=== PATIENT | female | born 1945 | race Caucasian/White ===

== ENCOUNTER 2019-01-20 20:27 | Emergency (ER) | payer OTHER ==
[2019-01-20] MEDS ORDERED: HYDROCODONE/APAP 5/325 MG TAB ONE (21:43)
--- NOTE | 2019-01-20 22:37 | EDPHYS ---
Physician Documentation [facility] Name: Sadia Stephenson Age: 73 yrs Sex: Female : 1945 Arrival Date: 01/20/2019 Time: 20:31 Bed 18 Private MD: Jovany Lerner ED Physician William Peng HPI: 01/20 21:58 This 73 yrs old Female presents to ER via Wheelchair with complaints of Fall gs Injury. 21:58 Details of fall: The patient fell from an upright position, while walking. Onset: The gs symptoms/episode began/occurred acutely, 3 day(s) ago. Associated injuries: The patient sustained injury to the chest, abrasion, contusion, pain with movement. Severity of symptoms: At their worst the symptoms were moderate, in the emergency department the symptoms have resolved. The patient has experienced similar episodes in the past, a few times. The patient has been recently seen at the [facility] Emergency Department, for similar complaints. Historical: - Allergies: 20:44 No Known Allergies; rr5 - Home Meds: 20:44 losartan oral oral [Active]; tramadol 50 mg Oral tab [Active]; Baclofen Oral [Active]; rr5 alprazolam 1 mg Oral tab [Active]; - PMHx: 20:44 Hypertension; Anxiety; Arthritis; rr5 - PSHx: 20:44 Cholecystectomy; rr5 - Immunization history:: Adult Immunizations up to date. - Social history:: Smoking status: Patient/guardian denies using tobacco, Patient/guardian denies using alcohol, street drugs. - Immunization history: Last tetanus immunization: unknown. - Ebola Screening: : Patient negative for fever greater than or equal to 101.5 degrees Fahrenheit, and additional compatible Ebola Virus Disease symptoms Patient denies exposure to infectious person Patient denies travel to an Ebola-affected area in the 21 days before illness onset. ROS: 21:58 All other systems are negative. gs Exam: 21:58 Head/Face: Normocephalic, atraumatic. Eyes: Pupils equal round and reactive to light, gs extra-ocular motions intact. Lids and lashes normal. Conjunctiva and sclera are non-icteric and not injected. Cornea within normal limits. Periorbital areas with no swelling, redness, or edema. ENT: Nares patent. No nasal discharge, no septal abnormalities noted. Tympanic membranes are normal and external auditory canals are clear. Oropharynx with no redness, swelling, or masses, exudates, or evidence of obstruction, uvula midline. Mucous membranes moist. Neck: Trachea midline, no thyromegaly or masses palpated, and no cervical lymphadenopathy. Supple, full range of motion without nuchal rigidity, or vertebral point tenderness. No Meningismus. Cardiovascular: Regular rate and rhythm with a normal S1 and S2. No gallops, murmurs, or rubs. Normal PMI, no JVD. No pulse deficits. Respiratory: Lungs have equal breath sounds bilaterally, clear to auscultation and percussion. No rales, rhonchi or wheezes noted. No increased work of breathing, no retractions or nasal flaring. Abdomen/GI: Soft, non-tender, with normal bowel sounds. No distension or tympany. No guarding or rebound. No evidence of tenderness throughout. Back: No spinal tenderness. No costovertebral tenderness. Full range of motion. Skin: Warm, dry with normal turgor. Normal color with no rashes, no lesions, and no evidence of cellulitis. Neuro: Awake and alert, GCS 15, oriented to person, place, time, and situation. Cranial nerves II-XII grossly intact. Motor strength 5/5 in all extremities. Sensory grossly intact. Cerebellar exam normal. Normal gait. 21:58 Constitutional: The patient appears alert, awake. 21:58 Musculoskeletal/extremity: ROM: limited active range of motion due to pain, limited passive range of motion due to pain, left wrist, Pulses: are normal with no appreciated deficits, Sensation intact. Vital Signs: 20:44 BP 162 / 129; Pulse 94; Resp 17; Temp 98.5; Pulse Ox 100% ; Weight 49.9 kg; Height 5 rr5 ft. 4 in. (162.56 cm); Pain 7/10; 22:00 BP 165 / 110; Pulse 89; Resp 16; Pulse Ox 99% on R/A; rr5 23:10 BP 159 / 92; Pulse 84; Resp 17; Temp 97.9; Pulse Ox 99% on R/A; rr5 20:44 Body Mass Index 18.88 (49.90 kg, 162.56 cm) rr5 Citlaly Coma Score: 20:44 Eye Response: spontaneous(4). Verbal Response: oriented(5). Motor Response: obeys rr5 commands(6). Total: 15. Trauma Score (Adult): 20:44 Eye Response: spontaneous(1); Verbal Response: oriented(1); Motor Response: obeys rr5 commands(2); Systolic BP: > 89 mm Hg(4); Respiratory Rate: 10 to 29 per min(4); Pathfork Score: 15; Trauma Score: 12 MDM: 21:14 Patient medically screened. gs 22:35 Differential diagnosis: contusion, fracture, sprain. Data reviewed: vital signs, nurses gs notes, radiologic studies. Counseling: I had a detailed discussion with the patient and/or guardian regarding: the historical points, exam findings, and any diagnostic results supporting the discharge/admit diagnosis, radiology results, the need for outpatient follow up. Response to treatment: the patient's symptoms have markedly improved after treatment, and as a result, I will discharge patient. 01/20 21:14 Order name: CT Chest Wo Con Administered Medications: 21:45 Drug: Nora 5 mg-325 mg 1 tabs Route: PO; rr5 23:10 Follow up: Response: No adverse reaction rr5 Disposition: 01/20/19 22:36 Discharged to Home. Impression: Multiple fractures of ribs, left side. - Condition is Stable. - Discharge Instructions: Rib Fracture. - Prescriptions for Tylenol- Codeine #4 300-60 mg Oral Tablet - take 1 tablet by ORAL route every 6 hours As needed; 12 tablet. - Medication Reconciliation Form, Thank You Letter, Antibiotic Education, Prescription Opioid Use form. - Follow up: Private Physician; When: 2 - 3 days; Reason: Re-evaluation by your physician. Signatures: Dispatcher [employer] EDMI William Peng MD MD Nicholas Guerra RN RN rr5 Corrections: (The following items were deleted from the chart) 23:20 22:36 01/20/2019 22:36 Discharged to Home. Impression: Multiple fractures of ribs, left rr5 side. Condition is Stable. Forms are Medication Reconciliation Form, Thank You Letter, Antibiotic Education, Prescription Opioid Use. Follow up: Private Physician; When: 2 - 3 days; Reason: Re-evaluation by your physician.
--- NOTE | 2019-01-20 22:37 | ER ---
Nurse's Notes [facility] Name: Sadia Stephenson Age: 73 yrs Sex: Female : 1945 Arrival Date: 01/20/2019 Time: 20:31 Bed 18 Private MD: Jovany Lerner Diagnosis: Multiple fractures of ribs, left side Presentation: 01/20 20:44 Presenting complaint: Patient states: i fell down last Friday hit my left chest area rr5 radiating to my back. having . pain score of 7/10. sharp pain felt when i breath in. last January 07 i fell down too broke my left wrist area and my right rib cage. i went to dr. Horner last January 13 for that. Transition of care: patient was not received from another setting of care. Onset of symptoms was January 17, 2019. Risk Assessment: Do you want to hurt yourself or someone else? Patient reports no desire to harm self or others. Initial Sepsis Screen: Does the patient meet any 2 criteria? No. Patient's initial sepsis screen is negative. Does the patient have a suspected source of infection? No. Patient's initial sepsis screen is negative. Care prior to arrival: on left wrist brace. Mechanism of Injury: Fall. 20:44 Method Of Arrival: Wheelchair rr5 20:44 Acuity: SLIM 3 rr5 20:44 Trauma event details: Injury occurred in the [facility], Injury occurred: at rr5 home. Injury occurred: January 17, 2019. 20:44 Mechanism of Injury: Fall while going to bathroom. rr5 Trauma Activation: Alert Physician: ED Physician; Name: dr. peng; Notified At: 20:44; Arrived At: 20:50 Physician: General Surgeon; Name: ; Notified At: 20:44; Arrived At: Physician: Radiology; Name: luca walsh; Notified At: 20:44; Arrived At: 20:47 Physician: Respiratory; Name: ; Notified At: 20:44; Arrived At: Physician: Lab; Name: ; Notified At: 20:44; Arrived At: Historical: - Allergies: 20:44 No Known Allergies; rr5 - Home Meds: 20:44 losartan oral oral [Active]; tramadol 50 mg Oral tab [Active]; Baclofen Oral [Active]; rr5 alprazolam 1 mg Oral tab [Active]; - PMHx: 20:44 Hypertension; Anxiety; Arthritis; rr5 - PSHx: 20:44 Cholecystectomy; rr5 - Immunization history:: Adult Immunizations up to date. - Social history:: Smoking status: Patient/guardian denies using tobacco, Patient/guardian denies using alcohol, street drugs. - Immunization history: Last tetanus immunization: unknown. - Ebola Screening: : Patient negative for fever greater than or equal to 101.5 degrees Fahrenheit, and additional compatible Ebola Virus Disease symptoms Patient denies exposure to infectious person Patient denies travel to an Ebola-affected area in the 21 days before illness onset. Screenin:44 Abuse screen: Denies threats or abuse. Denies injuries from another. Tuberculosis rr5 screening: No symptoms or risk factors identified. 20:45 Nutritional screening: No deficits noted. Fall Risk Fall in past 12 months (25 points). rr5 Total Petit Fall Scale indicates Low Risk Score (25-44 pts). Fall prevention measures have been instituted. Side Rails Up X 2 Placed close to Nursing Station Frequent Obs/Assesments occuring Family Present and informed to notify staff if they need to leave bedside As available Patient and Family Educated on Fall Prevention Program and strategies. Primary Survey: 20:44 NO uncontrolled hemorrhage observed. A: The patient is alert. Airway: patent. rr5 Breathing/Chest: Respiratory pattern: regular, Respiratory effort: spontaneous, unlabored, Breath sounds: clear, bilaterally. Chest inspection: symmetrical rise and fall of the chest. Circulation: Heart tones present. Pulses: palpable right radial artery. 20:44 Disability Alert. Exposure/Environment: There is no evidence of uncontrolled external rr5 bleeding. Obvious injury(ies) are noted at this time: left rib cage present. for the previous injury left wrist, right rib cage. 21:44 Reassessment Airway Airway Patent Breathing/Chest Respiratory pattern Regular rr5 Respiratory effort Spontaneous Unlabored Breath sounds Clear Chest inspection Symmetrical Circulation Heart tones Present Pulses Palpable Color [place] Temperature Warm Disability Alert. Secondary Survey: 20:44 HEENT: No deficits noted. Head. Gastrointestinal: No deficits noted. rr5 20:44 : No signs and/or symptoms were reported regarding the genitourinary system. rr5 Musculoskeletal: Circulation, motion, and sensation intact. Capillary refill < 3 seconds, Range of motion: intact in all extremities, Reports pain in left rib cage. Injury Description: contusion, fell down and hit her left rib cage area. Assessment: 20:44 General: Appears in no apparent distress. comfortable, Behavior is calm, cooperative, rr5 appropriate for age. 20:44 Pain: Complains of pain in left rib cage Pain radiates to back Pain currently is 7 out rr5 of 10 on a pain scale. Quality of pain is described as sharp, Pain began suddenly, Is intermittent. Neuro: Level of Consciousness is awake, alert, obeys commands, Oriented to person, place, time, situation, Appropriate for age. Cardiovascular: Capillary refill < 3 seconds Patient's skin is warm and dry. Respiratory: Reports pain with respiration since 3 days ago Airway is patent Respiratory effort is even, unlabored, Respiratory pattern is regular, symmetrical. GI: No signs and/or symptoms were reported involving the gastrointestinal system. : No signs and/or symptoms were reported regarding the genitourinary system. EENT: No signs and/or symptoms were reported regarding the EENT system. Derm: Skin is intact, Skin temperature is warm. Musculoskeletal: Circulation, motion, and sensation intact. Capillary refill < 3 seconds, on left wrist brace attached sustained from previous fall. Reports pain in left rib cage since Friday 3 days ago. Pain is 7 out of 10 on a pain scale. 21:30 Reassessment: Patient appears in no apparent distress at this time. Patient is alert, rr5 oriented x 3, equal unlabored respirations, skin warm/dry/pink. 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 21:45 Reassessment: Patient appears in no apparent distress at this time. patient complaint rr5 of pain at left rib. ED provider ordered and carried out. 22:20 Reassessment: awaiting for CT result. rr5 22:20 Reassessment: Patient appears in no apparent distress at this time. Patient is alert, rr5 oriented x 3, equal unlabored respirations, skin warm/dry/pink. 23:10 Reassessment: Patient appears in no apparent distress at this time. discharge rr5 instruction given and explained without complaints made assisted by family member. refused for the pain medication prescription. Patient states feeling better. Patient states symptoms have improved. Vital Signs: 20:44 BP 162 / 129; Pulse 94; Resp 17; Temp 98.5; Pulse Ox 100% ; Weight 49.9 kg; Height 5 rr5 ft. 4 in. (162.56 cm); Pain 7/10; 22:00 BP 165 / 110; Pulse 89; Resp 16; Pulse Ox 99% on R/A; rr5 23:10 BP 159 / 92; Pulse 84; Resp 17; Temp 97.9; Pulse Ox 99% on R/A; rr5 20:44 Body Mass Index 18.88 (49.90 kg, 162.56 cm) rr5 Citlaly Coma Score: 20:44 Eye Response: spontaneous(4). Verbal Response: oriented(5). Motor Response: obeys rr5 commands(6). Total: 15. Trauma Score (Adult): 20:44 Eye Response: spontaneous(1); Verbal Response: oriented(1); Motor Response: obeys rr5 commands(2); Systolic BP: > 89 mm Hg(4); Respiratory Rate: 10 to 29 per min(4); Hardy Score: 15; Trauma Score: 12 ED Course: 20:31 Patient arrived in ED. es 20:31 Jovany Lerner MD is Private Physician. es 20:43 Nicholas Guerra RN is Primary Nurse. rr5 20:44 Arm band placed on. rr5 20:45 William Peng MD is Attending Physician. gs 20:45 Patient has correct armband on for positive identification. Bed in low position. Call rr5 light in reach. Side rails up X2. Pulse ox on. NIBP on. 20:45 Patient maintains SpO2 saturation greater than 95% on room air. rr5 20:50 Thermoregulation: warm blanket given to patient. rr5 20:51 Triage completed. rr5 21:39 CT Chest Wo Con In Process Unspecified. EDMS 23:15 No provider procedures requiring assistance completed. Patient did not have IV access rr5 during this emergency room visit. Administered Medications: 21:45 Drug: [place] 5 mg-325 mg 1 tabs Route: PO; rr5 23:10 Follow up: Response: No adverse reaction rr5 Intake: 21:45 PO: 200ml; Total: 200ml. rr5 Outcome: 22:36 Discharge ordered by . 23:15 Discharged to home ambulatory, with family. rr5 23:15 Condition: stable 23:15 Discharge instructions given to patient, Instructed on discharge instructions, follow up and referral plans. Demonstrated understanding of instructions, follow-up care. 23:15 Patient's length of stay was not longer than 2 hours. rr5 23:20 Patient left the ED. rr5 Signatures: Dispatcher [employer] Alona Nunez Gregory, MD MD gs Roque, Raymond RN RN rr5
--- NOTE | 2019-01-22 09:38 | RAD REPORT ---
EXAM DESCRIPTION: CT - Thorax Susie Chandler - 01/21/2019 2:29 am CLINICAL HISTORY: The patient is 73 years old and is Female; PAIN TECHNIQUE: Axial computed tomography images of the chest without intravenous contrast. Sagittal an d coronal reformatted images were created and reviewed. This CT exam was performed using one or mor e of the following dose reduction techniques: automated exposure control, adjustment of the mA and/ or kV according to patient size, and/or use of iterative reconstruction technique. COMPARISON: No relevant prior studies available. FINDINGS: LUNGS: Minimal atelectasis/scarring within the medial aspect of the right middle lobe is present. Calcified granuloma within the left upper lobe is present. The tracheobronchial tree is wid graham patent. PLEURAL SPACE: Unremarkable. No pneumothorax. No significant effusion. HEART: No cardiomegaly. No pericardial effusion. BONES/JOINTS: Multilevel degenerative change of the spine is present. Fractures of the left ante rior third and fourth ribs are present. No other fracture is visualized of the axial and appendicular skeleton. SOFT TISSUES: The soft tissues are normal. VASCULATURE: Unremarkable. No thoracic aortic aneurysm. LYMPH NODES: Unremarkable. No enlarged lymph nodes. LIVER: Several low attenuating lesions are present within the liver consistent with cysts, the l argest of which measures approximately 3.0 cm. No follow-up imaging is recommended. There is a partia lly visualized ill-defined low attenuating lesion within the right hepatic lobe measuring 3.5 x 1.5 c m. GALLBLADDER AND BILE DUCTS: Surgical clips are present in the right upper quadrant, consistent w ith previous cholecystectomy. IMPRESSION: 1. Fractured left anterior third and fourth ribs. 2. Minimal atelectasis/scarring within the right middle lobe. 3. Multiple hepatic cysts. However, there is a partially visualized ill-defined low attenuating les ion within the inferior right hepatic lobe which is incompletely characterized on this exam. Nonemerg ent hepatic protocol CT or MRI is recommended for further evaluation. Electronically signed by: Samantha Terry MD 01/20/2019 9:55 PM CDT Due to temporary technical issues with the PACS/Fluency reporting system, reports are being signed by the in house radiologist as a courtesy to ensure prompt reporting. The interpreting radiologist is f ully responsible for the content of the report.
== END 2019-01-20 23:20 | disposition home or self-care (01) ==
LOC: ER 20:27
DX: S22.42XA Multiple fractures of ribs, left side, initial encounter for closed fracture (principal); W19.XXXA Unspecified fall, initial encounter; Y93.9 Activity, unspecified; Y92.9 Unspecified place or not applicable; I10 Essential (primary) hypertension; F41.9 Anxiety disorder, unspecified
CPT/HCPCS: 71250; 99284

== ENCOUNTER 2020-09-23 15:01 | Emergency (ER) | payer OTHER ==
--- OUTSIDE RECORDS SUMMARY | 2020-09-23 15:03 | XMS REPORT | Continuity of Care Document ---
:1945 Author Organization [facility] t Address [address] [place] [address] Care Team Providers Name Role Phone Warren LINARES L Attending Clinician Problems This patient has no known problems. Allergies, Adverse Reactions, Alerts This patient has no known allergies or adverse reactions. Medications Ordered Filled Start Stop Current Ordering Indication Dosage Frequency Signature Comments Components Source Medication Medication Date Date Medication? Clinician (SIG) Name Name Diclofenac Diclofenac Yes Na Hightower [address] [facility] Sodium Sodium 3-03 with food [facility] baclofen baclofen Yes Na Hightower [address] [facility] Klonopin Klonopin Yes Na Hightower [address] [facility] Diclofenac Diclofenac Yes Na Hightower as [facility] Sodium Sodium directed [facility] Losartan Losartan Yes Na Hightower [address] [facility] Potassium Potassium [facility] Tramadol Tramadol Yes Na Hightower [address] [facility] HCl HCl as needed [facility] Procedures This patient has no known procedures. Encounters Start End Encounter Admission Attending Care Care Encounter Source Date/Time Date/Time Type Type Clinicians Facility Department ID 2020-09-12 2020-09-[address] [facility] [id number] [facility] 2020-08-15 2020-08-15 [facility] [id number] 2020-08-15 2020-08-15 [facility] [id number] [facility] 2020-08-07 2020-08-07 [facility] [id number] [facility] 2020-05-31 2020-05-31 [facility] [id number] [facility] 2020-03-31 2020-03-31 [facility] [id number] [facility] 08:40:00 08:40:00 [facility] 2019-02-12 2019-02-12 [facility] [id number] 08:09:19 23:59:00 Encounter [facility] [id number] Surgical [id number] Specialti [id number] es 809 Georgi 2019-02-12 2019-02-12 Office [facility] [id number] 07:49:57 08:22:09 Visit [facility] [id number] Surgical [id number] Specialti [id number] es 198 Georgi Results This patient has no known results.
--- NOTE | 2020-09-23 16:13 | RAD REPORT ---
EXAM DESCRIPTION: CT - C Spine Wo Con - 09/23/2020 4:02 pm CLINICAL HISTORY: Pain, radiculopathy COMPARISON: MR cervical spine March 2020 TECHNIQUE: Axial 2 mm thick images of the cervical spine were obtained with sagittal and coronal rec onstruction images generated and reviewed. All CT scans are performed using dose optimization technique as appropriate and may include automated exposure control or mA/KV adjustment according to patient size. FINDINGS: Cervical bodies are normal in height. No acute compression fracture or pathologic bone pro cess. There is reversal of the usual cervical lordosis with the apex at C5. Very slight retrolisthesi s of C5 on C6 noted. Significant C5-6 and C6-7 disc space narrowing present. More moderate C4-5 disc space narrowing. These findings are all similar to the comparison study. No paraspinal mass or hematoma. Central canal detail is inherently limited on CT imaging. Midline disc bulge C3-4 with the central canal 9-10 mm. This is similar to comparison. C4-5 midline disc bulge and endplate spurring extending into the left exit foramen. There is left for aminal stenosis. No central spinal stenosis. Spondylosis changes contact the left anterior cord. Prominent disc bulge and endplate spurring changes are present C5-6. Central spinal stenosis to appro ximately 8 mm noted. Bilateral bony foraminal encroachment present. C6-7 disc bulge and endplate spurring changes though the central canal at 9 mm. Right foraminal encro achment is evident. IMPRESSION: Multilevel cervical spondylosis changes are present as detailed. No acute vertebral body or disc finding. The above detailed findings are stable from the March 2020 MRI study.
--- NOTE | 2020-09-23 16:14 | RAD REPORT ---
EXAM DESCRIPTION: RAD - Chest Single View - 09/23/2020 4:09 pm CLINICAL HISTORY: CHEST PAIN COMPARISON: Portable February 2017 TECHNIQUE: AP portable chest image was obtained 09/23/2020 4:09 pm . FINDINGS: No focal mass or consolidation. Chronic interstitial pattern accentuated by shallow inspir ation. Minimal edema or infiltrate could be masked. Granuloma lateral mid lung field on the left has not changed. Heart and vasculature are normal. No measurable pleural effusion and no pneumothorax. No acute bony abnormality seen. No acute aortic findings suspected. IMPRESSION: Chronic interstitial lung disease accentuated by shallow inspiration. This could mask ea rly edema or infiltrate.
[2020-09-23] MEDS ORDERED: ONDANSETRON 4 MG/2 ML VIAL ONE (16:22)
[2020-09-23] MEDS ORDERED: MORPHINE 2 MG/ML SYR ONE (16:22)
[2020-09-23] MEDS ORDERED: DIAZEPAM 5 MG TABLET ONE (16:22)
[2020-09-23] MEDS ORDERED: NA CHLORIDE 0.9% 50 ML ONE (16:23)
[2020-09-23] MEDS ORDERED: KETOROLAC 30 MG/ML INJ ONE (16:23)
[2020-09-23] MEDS ORDERED: dexAMETHasone 4 MG/ML VIAL ONE (16:23)
[2020-09-23 16:53] LABS: Absolute Lymphocytes (CBC) 2.3 K/uL (0.7-4.9); Basophils % 1.2 % (0-1.3); Hematocrit 37.7 % (36.0-45.0); Lymphocytes % 31.2 % (15.3-44.8); MPV 8.2 fL (7.6-11.3); RBC Red Blood Cell Count 4.41 M/uL (3.86-4.86)
[2020-09-23 17:08] LABS: Albumin 3.7 g/dL (3.4-5.0); Bilirubin Total 0.4 mg/dL (0.2-1.0); Potassium 3.7 mmol/L (3.5-5.1); Protein, Total 6.6 g/dL (6.4-8.2)
--- NOTE | 2020-09-23 17:12 | EDPHYS ---
Physician Documentation [facility] Name: Sadia Stephenson Age: 75 yrs Sex: Female : 1945 Arrival Date: 09/23/2020 Time: 15:03 Bed 14 Private MD: Lashay Hightower ED Physician Janes Carson HPI: 09/23 16:11 This 75 yrs old Female presents to ER via Ambulatory with complaints of miguel Headache, Neck Pain, >24Hrs Old. Historical: - Allergies: 15:13 No Known Allergies; iw - PMHx: 15:13 Anxiety; Arthritis; Hypertension; iw - PSHx: 15:13 Cholecystectomy; iw - Immunization history:: Flu vaccine is up to date. - Social history:: Smoking status: Patient denies any tobacco usage or history of. ROS: 16:14 Constitutional: Negative for fever, chills, and weight loss, Eyes: Negative for injury, miguel pain, redness, and discharge, ENT: Negative for injury, pain, and discharge, Cardiovascular: Negative for chest pain, palpitations, and edema, Respiratory: Negative for shortness of breath, cough, wheezing, and pleuritic chest pain, Abdomen/GI: Negative for abdominal pain, nausea, vomiting, diarrhea, and constipation, Back: Negative for injury and pain, : Negative for injury, bleeding, discharge, and swelling, MS/Extremity: Negative for injury and deformity, Skin: Negative for injury, rash, and discoloration, Neuro: Negative for headache, weakness, numbness, tingling, and seizure, Psych: Negative for depression, anxiety, suicide ideation, homicidal ideation, and hallucinations, Allergy/Immunology: Negative for hives, rash, and allergies, Endocrine: Negative for neck swelling, polydipsia, polyuria, polyphagia, and marked weight changes, Hematologic/Lymphatic: Negative for swollen nodes, abnormal bleeding, and unusual bruising. 16:14 Neck: Positive for pain with movement, pain at rest. Exam: 16:14 Constitutional: This is a well developed, well nourished patient who is awake, alert, miguel and in no acute distress. Head/Face: Normocephalic, atraumatic. Eyes: Pupils equal round and reactive to light, extra-ocular motions intact. Lids and lashes normal. Conjunctiva and sclera are non-icteric and not injected. Cornea within normal limits. Periorbital areas with no swelling, redness, or edema. ENT: Nares patent. No nasal discharge, no septal abnormalities noted. Tympanic membranes are normal and external auditory canals are clear. Oropharynx with no redness, swelling, or masses, exudates, or evidence of obstruction, uvula midline. Mucous membranes moist. Chest/axilla: Normal chest wall appearance and motion. Nontender with no deformity. No lesions are appreciated. Cardiovascular: Regular rate and rhythm with a normal S1 and S2. No gallops, murmurs, or rubs. Normal PMI, no JVD. No pulse deficits. Respiratory: Lungs have equal breath sounds bilaterally, clear to auscultation and percussion. No rales, rhonchi or wheezes noted. No increased work of breathing, no retractions or nasal flaring. Abdomen/GI: Soft, non-tender, with normal bowel sounds. No distension or tympany. No guarding or rebound. No evidence of tenderness throughout. Back: No spinal tenderness. No costovertebral tenderness. Full range of motion. Female : Normal external genitalia. Skin: Warm, dry with normal turgor. Normal color with no rashes, no lesions, and no evidence of cellulitis. MS/ Extremity: Pulses equal, no cyanosis. Neurovascular intact. Full, normal range of motion. Neuro: Awake and alert, GCS 15, oriented to person, place, time, and situation. Cranial nerves II-XII grossly intact. Motor strength 5/5 in all extremities. Sensory grossly intact. Cerebellar exam normal. Normal gait. Psych: Awake, alert, with orientation to person, place and time. Behavior, mood, and affect are within normal limits. 16:14 Neck: External neck: is normal, no acute changes, C-spine: no acute changes, Thyroid: appears normal, no acute changes, Trachea: is midline with no obvious abnormalities, no acute changes, ROM/movement: pain, that is mild, with any movement, Lymph nodes: no appreciated lymphadenopathy. Vital Signs: 15:11 BP 150 / 92; Pulse 75; Resp 16; Temp 98.7; Pulse Ox 100% on R/A; Weight 49.9 kg; Height iw 5 ft. 4 in. (162.56 cm); Pain 10/10; 16:59 BP 137 / 73; Pulse 58; Resp 16; Pulse Ox 99% on R/A; zb 15:11 Body Mass Index 18.88 (49.90 kg, 162.56 cm) iw MDM: 15:24 Patient medically screened. miguel 16:16 Differential diagnosis: Cervical Raiculopathy Cervical Spondylosis cervical strain, miguel Degenerative Disc Disease Osteoarthritis Spinal Cord Compression Spondylolisthesis Spondylosis. Data reviewed: vital signs, nurses notes, lab test result(s), EKG, radiologic studies, CT scan, plain films. 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 Test interpretation: by ED physician or midlevel provider: ECG, plain radiologic studies. Counseling: I had a detailed discussion with the patient and/or guardian regarding: the historical points, exam findings, and any diagnostic results supporting the discharge/admit diagnosis, lab results, radiology results, the need for outpatient follow up, for definitive care, a family practitioner, a neurosurgeon. 09/23 15:39 Order name: CBC with Diff; Complete Time: 17:06 [facility] 09/23 15:39 Order name: Comprehensive Metabolic Panel; Complete Time: 17:11 [facility] 09/23 15:39 Order name: CT C Spine; Complete Time: 16:23 [facility] 09/23 15:39 Order name: Chest Single View XRAY; Complete Time: 16:23 [facility] 09/23 16:24 Order name: Troponin (emerg Dept Use Only) [facility] 09/23 15:39 Order name: EKG; Complete Time: 15:40 [facility] 09/23 15:39 Order name: EKG - Nurse/Tech; Complete Time: 16:42 [facility] Administered Medications: 16:42 Drug: Decadron - Dexamethasone 8 mg Route: IVP; Site: right antecubital; zb 17:30 Follow up: Response: No adverse reaction; Pain is decreased zb 16:42 Drug: TORadol 30 mg Route: IVP; Site: right antecubital; zb 17:30 Follow up: Response: No adverse reaction; Pain is decreased zb 16:42 Drug: Valium 5 mg Route: PO; zb 17:30 Follow up: Response: No adverse reaction; Pain is decreased zb 16:42 Drug: Zofran (Ondansetron) 4 mg Route: IVP; Site: right antecubital; zb 17:30 Follow up: Response: No adverse reaction; Marked relief of symptoms zb 16:43 Drug: morphine 2 mg {Note: RASS 0.} Route: IVP; Site: right antecubital; zb 17:30 Follow up: Response: No adverse reaction; RASS: Alert and Calm (0) zb Disposition: 09/23/20 17:11 Discharged to Home. Impression: Radiculopathy, cervical region, Strain of muscle, fascia and tendon at neck level. - Condition is Stable. - Discharge Instructions: Cervical Radiculopathy, Cervical Sprain, [id number], Cervical Radiculopathy, [id number], Radicular Pain. - Prescriptions for Tylenol- Codeine #3 300-30 mg Oral Tablet - take 2 tablets by ORAL route every 4-6 hours As needed; 24 tablet. Dexamethasone 0.5 mg Oral Tablet - take 1 tablet by ORAL route 3 times per day; 15 tablet. Motrin IB 200 mg Oral Tablet - take 2 tablet by ORAL route every 6 hours As needed as needed with food; 30 tablet. Cyclobenzaprine 5 mg Oral Tablet - take 1 tablet by ORAL route 3 times per day As needed; 15 tablet. - Medication Reconciliation Form, Thank You Letter, Antibiotic Education, Prescription Opioid Use form. - Follow up: Lashay Hightower; When: 2 - 3 days; Reason: Recheck today's complaints, Continuance of care, Re-evaluation by your physician. Follow up: Yury Gonzalez; When: 2 - 3 days; Reason: Recheck today's complaints, Re-evaluation by your physician. - Problem is new. - Symptoms have improved. Signatures: Dispatcher [employer] Janes Mir MD MD cha Williams, Irene, RN RN iw Brown, Zipporah, RN RN zradha Corrections: (The following items were deleted from the chart) 16:13 16:10 This 75 yrs old Female presents to ER via Ambulatory with complaints of miguel Headache, Neck Pain, >24Hrs Old. miguel 17:33 17:11 09/23/2020 17:11 Discharged to Home. Impression: Radiculopathy, cervical region; zb Strain of muscle, fascia and tendon at neck level. Condition is Stable. Discharge Instructions: Cervical Radiculopathy, Cervical Sprain, [id number], Cervical Radiculopathy, [id number], Radicular Pain. Prescriptions for Tylenol-Codeine #3 300-30 mg Oral Tablet - take 2 tablets by ORAL route every 4-6 hours As needed; 24 tablet, Dexamethasone 0.5 mg Oral Tablet - take 1 tablet by ORAL route 3 times per day; 15 tablet, Motrin IB 200 mg Oral Tablet - take 2 tablet by ORAL route every 6 hours As needed as needed with food; 30 tablet, Cyclobenzaprine 5 mg Oral Tablet - take 1 tablet by ORAL route 3 times per day As needed; 15 tablet. and Forms are Medication Reconciliation Form, Thank You Letter, Antibiotic Education, Prescription Opioid Use. Follow up: Lashay Hightower; When: 2 - 3 days; Reason: Recheck today's complaints, Continuance of care, Re-evaluation by your physician. Follow up: Yury Gonzalez; When: 2 - 3 days; Reason: Recheck today's complaints, Re-evaluation by your physician. Problem is new. Symptoms have improved. miguel
--- NOTE | 2020-09-23 17:12 | ER ---
Nurse's Notes [facility] Name: Sadia Stephenson Age: 75 yrs Sex: Female : 1945 Arrival Date: 09/23/2020 Time: 15:03 Bed 14 Private MD: Lashay Hightower Diagnosis: Radiculopathy, cervical region;Strain of muscle, fascia and tendon at neck level Presentation: 09/23 15:11 Chief complaint: Patient states: was diagnosed with disc herniation and spondylosis and iw is supposed to have some shots but she can't afford it , has been taking tramadol and it's not helping now , is having pain in her neck and radiates to her chin. Coronavirus screen: At this time, the client does not indicate any symptoms associated with coronavirus-19. Ebola Screen: Patient negative for fever greater than or equal to 101.5 degrees Fahrenheit, and additional compatible Ebola Virus Disease symptoms Patient denies exposure to infectious person. Patient denies travel to an Ebola-affected area in the 21 days before illness onset. No symptoms or risks identified at this time. Initial Sepsis Screen: Does the patient meet any 2 criteria? No. Patient's initial sepsis screen is negative. Does the patient have a suspected source of infection? No. Patient's initial sepsis screen is negative. Risk Assessment: Do you want to hurt yourself or someone else? Patient reports no desire to harm self or others. Onset of symptoms. 15:11 Method Of Arrival: Ambulatory iw 15:11 Acuity: SLIM 4 iw 15:42 Acuity: SLIM 3 iw Triage Assessment: 17:20 Headache History: Denies prior headaches. zb 17:20 Pain: Also complains of no other associated symptoms. zb 17:20 General: Behavior is calm. zb Historical: - Allergies: 15:13 No Known Allergies; iw - PMHx: 15:13 Anxiety; Arthritis; Hypertension; iw - PSHx: 15:13 Cholecystectomy; iw - Immunization history:: Flu vaccine is up to date. - Social history:: Smoking status: Patient denies any tobacco usage or history of. Screenin:30 Abuse screen: Denies threats or abuse. Denies injuries from another. Nutritional zb screening: No deficits noted. Tuberculosis screening: No symptoms or risk factors identified. Fall Risk None identified. Assessment: 15:24 General: Appears in no apparent distress. Pain: Complains of pain in left base of the zb skull and neck Pain radiates to chin and right jaw Pain currently is 10 out of 10 on a pain scale. Quality of pain is described as throbbing, Pain began suddenly. Neuro: Level of Consciousness is awake, alert, obeys commands, Oriented to person, place, time. Neuro: Reports headache Denies weakness blurred vision dizziness, difficulty swallowing, paresthesias numbness. Cardiovascular: Capillary refill < 3 seconds Patient's skin is warm and dry. Respiratory: Airway is patent Respiratory effort is even, unlabored, Respiratory pattern is regular, symmetrical. GI: Abdomen is round. : No deficits noted. EENT: No deficits noted. Derm: No deficits noted. Musculoskeletal: No deficits noted. 16:25 Reassessment: Patient appears in no apparent distress at this time. Patient and/or zb family updated on plan of care and expected duration. Pain level reassessed. Patient is alert, oriented x 3, equal unlabored respirations, skin warm/dry/pink. no changes at this time. General:. 17:17 Reassessment: pt states that she is feeling better. pain has decreased. D/C information zb given. gait steady and even. Vital Signs: 15:11 BP 150 / 92; Pulse 75; Resp 16; Temp 98.7; Pulse Ox 100% on R/A; Weight 49.9 kg; Height iw 5 ft. 4 in. (162.56 cm); Pain 10/10; 16:59 BP 137 / 73; Pulse 58; Resp 16; Pulse Ox 99% on R/A; zb 15:11 Body Mass Index 18.88 (49.90 kg, 162.56 cm) ED Course: 15:03 Patient arrived in ED. am2 15:03 Lashay Hightower MD is Private Physician. am2 15:13 Triage completed. iw 15:13 Arm band placed on. iw 15:24 Hillary Brandon, EMANUEL is Primary Nurse. zb 15:24 Janes Carson MD is Attending Physician. miguel 16:02 CT C Spine In Process Unspecified. EDMS 16:09 Chest Single View XRAY In Process Unspecified. EDMS 17:11 Lashay Hightower MD is Referral Physician. miguel 17:11 Yury Gonzalez MD is Referral Physician. miguel 17:20 Patient has correct armband on for positive identification. Pulse ox on. NIBP on. Door zb closed. 17:20 No provider procedures requiring assistance completed. IV discontinued, intact, zb bleeding controlled, No redness/swelling at site. Pressure dressing applied. Administered Medications: 16:42 Drug: Decadron - Dexamethasone 8 mg Route: IVP; Site: right antecubital; zb 17:30 Follow up: Response: No adverse reaction; Pain is decreased zb 16:42 Drug: TORadol 30 mg Route: IVP; Site: right antecubital; zb 17:30 Follow up: Response: No adverse reaction; Pain is decreased zb 16:42 Drug: Valium 5 mg Route: PO; zb 17:30 Follow up: Response: No adverse reaction; Pain is decreased zb 16:42 Drug: Zofran (Ondansetron) 4 mg Route: IVP; Site: right antecubital; zb 17:30 Follow up: Response: No adverse reaction; Marked relief of symptoms zb 16:43 Drug: morphine 2 mg {Note: RASS 0.} Route: IVP; Site: right antecubital; zb 17:30 Follow up: Response: No adverse reaction; RASS: Alert and Calm (0) zb Outcome: 17:11 Discharge ordered by . miguel 17:20 Discharged to home ambulatory. zb 17:20 Condition: stable 17:20 Discharge instructions given to patient. 17:33 Instructed on discharge instructions, follow up and referral plans. medication usage, zb Demonstrated understanding of instructions, follow-up care, medications, Prescriptions given X 4. 17:33 Patient left the ED. zb Signatures: Dispatcher [employer] EDJanes Olivas MD MD cha Williams, Irene RN Demetra Oneill Zipporah, RN RN zradha
[2020-09-23 17:38] VITALS: TEMP 98.7
[2020-09-23 17:39] VITALS: BP 137/73; O2SAT 99
== END 2020-09-23 17:33 | disposition home or self-care (01) ==
LOC: ER 15:01
DX: M54.12 Radiculopathy, cervical region (principal); S16.1XXA Strain of muscle, fascia and tendon at neck level, initial encounter; I10 Essential (primary) hypertension
CPT/HCPCS: 93005; 85025; 36415; 84484; 80053; 72125; 71045; 96375; 96374; 99284; J1100; J2270; J2405

== ENCOUNTER 2024-07-03 04:29 | Emergency (ER) | payer OTHER ==
--- OUTSIDE RECORDS SUMMARY | 2024-07-03 04:33 | XMS REPORT | Continuity of Care Document ---
Author Name Unknown Address [address] [place] [address] [facility] thconnect Address [address] [place] [address] Care Team Providers Care Bridge/Structure Inspection Team Leader Name Role Phone Jovany Lerner Jr. Primary Care Physician [phone] Annalee Tejada Attending Clinician Unavailable Lashay FAUSTIN Attending Clinician Unavailable MAURY ECHOLS Attending Clinician Unavail able Nurse, Adc Pob Immunization Attending Clinician Unavailable Maury Echols DO Attending Clinician [phone] MARIAM DE PAZ Attending Clinician Unavailable Dieter Kelley MD Attending Clinician [phone] Payers Payer Name Policy Type Policy Number Effective Date Expirati on Date Source MEDICARE PART A \T\ B [id number] 2010 00:00:00 MEDICARE NOVITAS [id number] 2010 00:00:00 [facility] MEDICARE NOVITAS [id number] 2010 00:00:00 [facility] Problems Condition Name Condition Details Condition Category Status Onset Date Resolution Date Last Treatment Date Treating Clinician Comments Source Primary osteoarthr itis Primary osteoarthr itis involving multiple joints Problem [facility] [id number] Stage 3a chronic kidney disease Problem [facility] [id number] 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, lumbar region Problem [facility] [id number] Cervical radiculopa thy due to degenerati ve joint disease of spine Problem [facility] [id number] Recurrent falls Problem [facility] [id number] Senile cataract of right eye, unspecifie d age-relate d cataract type Problem [facility] Vitreous floaters of both eyes Vitreous floaters of both eyes Problem [facility] [id number] Grieving Problem Commo n [facility] [id number] Anxiety Problem [facility] [id number] Essential hypertensi on Problem [facility] [id number] Other chronic pain Problem [facility] Allergies, Adverse Reactions, Alerts Allergy Name Allergy Type Status Severity Reaction(s) Onset Date Inactive Date Treating Clinician Comments Source ASPIRIN DRUG INGREDI Active [facility] 10-10 00:00: 00 [facility] Aspirin Propensi ty to adverse reaction s Active [facility] 10-10 00:00: 00 [facility] NO KNOWN ALLERGIE S Drug Class Active [facility] Social History Social Habit Start Date Stop Date Quantity Comments Source History of Tobacco Use [facility] Sex Assigned At [facility] Smoking Status Start Date Stop Date Source Unknown if ever smoked [facility] Never Smoker [facility] Former Smoker 2024-02-11 00:00:00 2024-02-11 00:00:00 [facility] Medications Ordered Medication Name Filled Medication Name Start Date Stop Date Current Medication? Ordering Clinician Indication Dosage Frequency Signature (SIG) Comments Components Source Carvedilol 3.125 MG Carvedilol 3.125 MG 2- 00:00: 00 No 1{table t_with_ food} BID Carvedilol 3.125 MG traMADol HCl 50 MG traMADol HCl 50 MG 10-30 00:00: 00 11-06 00:00 :00 No 1{table t_as_ne eded} BID traMADol HCl 50 MG clonazePAM 1 mg tablet 01-04 00:00: 00 Yes TAKE 1 TABLET (1 MG) BY MOUTH 3 TIMES PER DAY NEEDED [facility] losartan 100 mg tablet 01-04 00:00: 00 Yes 100mg Take 100 mg by mouth daily. [facility] traMADOL 50 mg tablet 01-04 00:00: 00 Yes TAKE 1 TABLET (50 MG) BY MOUTH EVERY 8 HOURS NEEDED [facility] Losartan Potassium 100 MG Losartan Potassium 100 MG No 1{table t} QD Losartan Potassium 100 MG KlonoPIN 0.5 MG KlonoPIN 0.5 MG No 1{table t} KlonoPIN 0.5 MG Vital Signs Vital Name Observation Time Observation Value Comments S ource height 2024-06-23 09:40:00 60.5 [in_i] Comm on [facility] weight 2024-06-23 09:40:00 112.4 [lb_av] Co mmon [facility] temperature 2024-06-23 09:40:00 97.3 [degF] Com mon [facility] bmi 2024-06-23 09:40:00 21.59 kg/m2 Comm on [facility] oximetry 2024-06-23 09:40:00 96 % Commo n [facility] respiratory rate 2024-06-23 09:40:00 16 /min [facility] blood pressure systolic 2024-06-23 09:40:00 162 mm[Hg] [facility] blood pressure diastolic 2024-06-23 09:40:00 88 mm[Hg] [facility] height 2024-06-23 09:40:00 60.5 [in_i] Comm on [facility] weight 2024-06-23 09:40:00 112.4 [lb_av] Co mmon [facility] temperature 2024-06-23 09:40:00 97.3 [degF] Com mon [facility] bmi 2024-06-23 09:40:00 21.59 kg/m2 Comm on [facility] oximetry 2024-06-23 09:40:00 96 % Commo n [facility] respiratory rate 2024-06-23 09:40:00 16 /min [facility] blood pressure systolic 2024-06-23 09:40:00 162 mm[Hg] [facility] blood pressure diastolic 2024-06-23 09:40:00 88 mm[Hg] [facility] height 2024-02-11 10:00:00 60.5 [in_i] Comm on [facility] weight 2024-02-11 10:00:00 112 [lb_av] Comm on [facility] temperature 2024-02-11 10:00:00 97.3 [degF] Com mon [facility] bmi 2024-02-11 10:00:00 21.51 kg/m2 Comm on [facility] oximetry 2024-02-11 10:00:00 98 % Commo n [facility] respiratory rate 2024-02-11 10:00:00 16 /min [facility] blood pressure systolic 2024-02-11 10:00:00 126 mm[Hg] Common [facility] blood pressure diastolic 2024-02-11 10:00:00 68 mm[Hg] [facility] height 2023-11-11 10:00:00 60.5 [in_i] Comm on [facility] weight 2023-11-11 10:00:00 110.8 [lb_av] Co mmon [facility] temperature 2023-11-11 10:00:00 97.4 [degF] Com mon [facility] bmi 2023-11-11 10:00:00 21.28 kg/m2 Comm on [facility] oximetry 2023-11-11 10:00:00 98 % Commo n [facility] respiratory rate 2023-11-11 10:00:00 16 /min [facility] blood pressure systolic 2023-11-11 10:00:00 136 mm[Hg] [facility] blood pressure diastolic 2023-11-11 10:00:00 84 mm[Hg] [facility] height 2023-09-18 09:40:00 60.5 [in_i] Comm on [facility] weight 2023-09-18 09:40:00 113.0 [lb_av] Co mmon [facility] temperature 2023-09-18 09:40:00 97.3 [degF] Com [facility] bmi 2023-09-18 09:40:00 21.7 kg/m2 Commo n [facility] oximetry 2023-09-18 09:40:00 98 % Commo n [facility] respiratory rate 2023-09-18 09:40:00 16 /min [facility] blood pressure systolic 2023-09-18 09:40:00 118 mm[Hg] [facility] blood pressure diastolic 2023-09-18 09:40:00 72 mm[Hg] [facility] height 2023-08-21 09:40:00 60.5 [in_i] Comm on [facility] weight 2023-08-21 09:40:00 114 [lb_av] Comm on [facility] temperature 2023-08-21 09:40:00 97.0 [degF] Com [facility] bmi 2023-08-21 09:40:00 21.9 kg/m2 Commo n [facility] oximetry 2023-08-21 09:40:00 98 % Commo n [facility] respiratory rate 2023-08-21 09:40:00 16 /min [facility] blood pressure systolic 2023-08-21 09:40:00 146 mm[Hg] Common Spiri [facility] blood pressure diastolic 2023-08-21 09:40:00 82 mm[Hg] [facility] height 2023-06-30 13:40:00 61 [in_i] Commo n [facility] weight 2023-06-30 13:40:00 112.2 [lb_av] Co mmon [facility] temperature 2023-06-30 13:40:00 97.5 [degF] Com [facility] bmi 2023-06-30 13:40:00 21.2 kg/m2 Commo n [facility] oximetry 2023-06-30 13:40:00 97 % Commo n [facility] respiratory rate 2023-06-30 13:40:00 16 /min [facility] blood pressure systolic 2023-06-30 13:40:00 136 mm[Hg] Common Spiri [facility] blood pressure diastolic 2023-06-30 13:40:00 78 mm[Hg] [facility] height 2023-05-12 09:00:00 61 [in_i] Commo n [facility] weight 2023-05-12 09:00:00 113 [lb_av] Comm on [facility] temperature 2023-05-12 09:00:00 97.3 [degF] Com [facility] bmi 2023-05-12 09:00:00 21.35 kg/m2 Comm on [facility] oximetry 2023-05-12 09:00:00 98 % Commo n [facility] respiratory rate 2023-05-12 09:00:00 16 /min [facility] blood pressure systolic 2023-05-12 09:00:00 164 mm[Hg] [facility] blood pressure diastolic 2023-05-12 09:00:00 78 mm[Hg] [facility] height 2023-05-12 09:40:00 61 [in_i] Commo n [facility] weight 2023-05-12 09:40:00 113 [lb_av] Comm on [facility] temperature 2023-05-12 09:40:00 97.3 [degF] Com [facility] bmi 2023-05-12 09:40:00 21.35 kg/m2 Comm on [facility] oximetry 2023-05-12 09:40:00 98 % Commo n [facility] respiratory rate 2023-05-12 09:40:00 16 /min [facility] blood pressure systolic 2023-05-12 09:40:00 164 mm[Hg] [facility] blood pressure diastolic 2023-05-12 09:40:00 78 mm[Hg] [facility] height 2023-02-13 08:40:00 61 [in_i] Commo n [facility] weight 2023-02-13 08:40:00 110 [lb_av] Comm on [facility] temperature 2023-02-13 08:40:00 97.0 [degF] Com [facility] bmi 2023-02-13 08:40:00 20.78 kg/m2 Comm on [facility] oximetry 2023-02-13 08:40:00 98 % Commo n [facility] respiratory rate 2023-02-13 08:40:00 16 /min [facility] blood pressure systolic 2023-02-13 08:40:00 134 mm[Hg] [facility] blood pressure diastolic 2023-02-13 08:40:00 78 mm[Hg] [facility] height 2022-11-08 16:40:00 61 [in_i] Commo n [facility] weight 2022-11-08 16:40:00 108 [lb_av] Comm on [facility] temperature 2022-11-08 16:40:00 97.8 [degF] Com [facility] bmi 2022-11-08 16:40:00 20.4 kg/m2 Commo n [facility] oximetry 2022-11-08 16:40:00 97 % Commo n [facility] respiratory rate 2022-11-08 16:40:00 17 /min [facility] blood pressure systolic 2022-11-08 16:40:00 134 mm[Hg] [facility] blood pressure diastolic 2022-11-08 16:40:00 70 mm[Hg] [facility] height 2022-09-13 13:20:00 61 [in_i] Commo n [facility] weight 2022-09-13 13:20:00 108.4 [lb_av] Co mmon [facility] temperature 2022-09-13 13:20:00 97.6 [degF] Com [facility] bmi 2022-09-13 13:20:00 20.48 kg/m2 Comm on [facility] oximetry 2022-09-13 13:20:00 98 % Commo n [facility] respiratory rate 2022-09-13 13:20:00 16 /min [facility] blood pressure systolic 2022-09-13 13:20:00 134 mm[Hg] Common Sp[facility] blood pressure diastolic 2022-09-13 13:20:00 82 mm[Hg] [facility] height 2022-07-24 09:00:00 61 [in_i] Commo n [facility] weight 2022-07-24 09:00:00 109.5 [lb_av] Co mmon [facility] temperature 2022-07-24 09:00:00 97.3 [degF] Com mon [facility] bmi 2022-07-24 09:00:00 20.69 kg/m2 Comm on [facility] oximetry 2022-07-24 09:00:00 100 % Commo n [facility] respiratory rate 2022-07-24 09:00:00 16 /min Common [facility] blood pressure systolic 2022-07-24 09:00:00 138 mm[Hg] Common Sp[facility] blood pressure diastolic 2022-07-24 09:00:00 85 mm[Hg] [facility] height 2022-07-01 10:20:00 61 [in_i] Commo n [facility] weight 2022-07-01 10:20:00 111.8 [lb_av] Co [facility] temperature 2022-07-01 10:20:00 97.2 [degF] Com [facility] bmi 2022-07-01 10:20:00 21.12 kg/m2 Comm on [facility] oximetry 2022-07-01 10:20:00 97 % Commo n [facility] respiratory rate 2022-07-01 10:20:00 16 /min [facility] blood pressure systolic 2022-07-01 10:20:00 135 mm[Hg] Common Spiri [facility] blood pressure diastolic 2022-07-01 10:20:00 82 mm[Hg] [facility] height 2022-04-29 10:20:00 61 [in_i] Commo n [facility] weight 2022-04-29 10:20:00 111.6 [lb_av] Co [facility] temperature 2022-04-29 10:20:00 98.6 [degF] Com [facility] bmi 2022-04-29 10:20:00 21.08 kg/m2 Comm on [facility] oximetry 2022-04-29 10:20:00 97 % Commo n [facility] blood pressure systolic 2022-04-29 10:20:00 136 mm[Hg] [facility] blood pressure diastolic 2022-04-29 10:20:00 86 mm[Hg] [facility] height 2022-04-29 10:00:00 Commo n [facility] weight 2022-04-29 10:00:00 111.6 [lb_av] Co [facility] temperature 2022-04-29 10:00:00 98.6 [degF] Com [facility] bmi 2022-04-29 10:00:00 21.08 kg/m2 Comm on [facility] oximetry 2022-04-29 10:00:00 97 % Commo n [facility] respiratory rate 2022-04-29 10:00:00 16 /min [facility] blood pressure systolic 2022-04-29 10:00:00 136 mm[Hg] [facility] blood pressure diastolic 2022-04-29 10:00:00 86 mm[Hg] [facility] height 2022-03-12 08:40:00 64.00 [in_i] Com [facility] weight 2022-03-12 08:40:00 110 [lb_av] Comm on [facility] bmi 2022-03-12 08:40:00 18.88 kg/m2 Comm on [facility] height 2022-01-10 08:20:00 64.00 [in_i] Com [facility] weight 2022-01-10 08:20:00 111.2 [lb_av] [facility] 2022-01-10 08:20:00 97.6 [degF] Com [facility] bmi 2022-01-10 08:20:00 19.09 kg/m2 Comm on [facility] oximetry 2022-01-10 08:20:00 98 % Commo n [facility] respiratory rate 2022-01-10 08:20:00 16 /min [facility] blood pressure systolic 2022-01-10 08:20:00 132 mm[Hg] [facility] blood pressure diastolic 2022-01-10 08:20:00 74 mm[Hg] [facility] height 2021-10-30 09:00:00 64.00 [in_i] Com [facility] weight 2021-10-30 09:00:00 109.6 [lb_av] Co [facility] temperature 2021-10-30 09:00:00 97.8 [degF] Com [facility] bmi 2021-10-30 09:00:00 18.81 kg/m2 Comm on [facility] oximetry 2021-10-30 09:00:00 100 % Commo n [facility] respiratory rate 2021-10-30 09:00:00 16 /min [facility] blood pressure systolic 2021-10-30 09:00:00 139 mm[Hg] [facility] blood pressure diastolic 2021-10-30 09:00:00 85 mm[Hg] [facility] height 2021-08-27 08:20:00 64.00 [in_i] Com [facility] weight 2021-08-27 08:20:00 111.0 [lb_av] Co [facility] temperature 2021-08-27 08:20:00 97.3 [degF] Com [facility] bmi 2021-08-27 08:20:00 19.05 kg/m2 Comm on [facility] oximetry 2021-08-27 08:20:00 100 % Commo n [facility] respiratory rate 2021-08-27 08:20:00 16 /min [facility] blood pressure systolic 2021-08-27 08:20:00 130 mm[Hg] [facility] blood pressure diastolic 2021-08-27 08:20:00 68 mm[Hg] [facility] height 2021-06-19 08:40:00 64.00 [in_i] Com [facility] weight 2021-06-19 08:40:00 111 [lb_av] Comm on [facility] temperature 2021-06-19 08:40:00 97.2 [degF] Com [facility] bmi 2021-06-19 08:40:00 19.05 kg/m2 Comm [facility] oximetry 2021-06-19 08:40:00 99 % Commo n [facility] respiratory rate 2021-06-19 08:40:00 22 /min [facility] blood pressure systolic 2021-06-19 08:40:00 124 mm[Hg] [facility] blood pressure diastolic 2021-06-19 08:40:00 72 mm[Hg] [facility] Procedures Procedure Date / Time Performed Performing Clinicia n Source SARS-COV-2 COVID-19 VACCINE,0.3ML,IM (PFIZER) 2021-08-20 22:26:34 Doctor Unassigned, [place] [facility] Encounters Start Date/Time End Date/Time Encounter Type Admission Type Attending Clinicians Care Facility Care Department Encounter ID Source 2024-06-22 16:16:00 Outpatient Annalee Tejada [facility] [id number] [facility] 2024-02-09 09:27:00 Outpatient Annalee Tejada [facility] [id number] [facility] 2023 09:51:00 Outpatient Annalee Tejada [facility] [id number] [facility] 2023-08-19 07:56:00 Outpatient Annalee Tejada [facility] [id number] [facility] 2022-10-09 11:33:02 Outpatient Annalee Tejada [facility] [id number] [facility] 2022-09-13 13:45:00 Outpatient Annalee Tejada [facility] [id number] [facility] 2022-08-23 14:32:01 Outpatient Annalee Tejada [facility] [id number] [facility] 2022-08-01 08:42:01 Outpatient FAUSTIN, Na [facility] [id number] [facility] 2022-06-27 10:15:01 Outpatient Faustin, Na [facility] [id number] [facility] 2022-04-25 08:20:02 Outpatient Faustin, Na [facility] [id number] [facility] 2022-03-08 08:36:02 Outpatient Faustin, Na [facility] [id number] [facility] 2022-01-08 15:39:01 Outpatient Faustin, Na [facility] [id number] [facility] 2021-10-26 10:32:01 Outpatient Faustin, Na [facility] [id number] [facility] 2021-08-23 09:48:01 Outpatient Faustin, Na [facility] [id number] [facility] 2021-08-15 13:22:49 Outpatient Faustin, Na [facility] [id number] [facility] 2021-08-15 13:10:32 Outpatient Faustin, Na [facility] [id number] [facility] 2021-08-15 12:43:13 Outpatient Faustin, Na [facility] [id number] [facility] 2021-08-15 12:25:25 Outpatient Faustin, Na [facility] [id number] [facility] 2021-08-15 11:45:12 Outpatient Faustin, Na [facility] [id number] [facility] 2021-08-15 11:44:13 Outpatient Faustin, Na [facility] [id number] [facility] 2024-06-23 00:00:00 2024-06-23 00:00:00 SUB ANNUAL [facility] VISIT [facility] [id number] [facility] 2024-06-23 00:00:00 2024-06-23 00:00:00 OFFICE VISIT ESTAB PT LEVEL 4 [facility] [id number] [facility] 2024-03-19 00:00:00 2024-03-19 00:00:00 (TEL) [facility]C [facility] [id number] [facility] 2024-02-11 00:00:00 2024-02-11 00:00:00 OFFICE VISIT ESTAB PT LEVEL 4 [facility] [id number] [facility] 2023-11-17 00:00:00 2023-11-17 00:00:00 (TEL) [facility]C [facility] [id number] [facility] 2023-11-11 00:00:00 2023-11-11 00:00:00 (TEL) [facility]C [facility] [id number] [facility] 2023-11-11 00:00:00 2023-11-11 00:00:00 OFFICE VISIT ESTAB PT LEVEL 4 [facility] [id number] [facility] 2023-10-14 00:00:00 2023-10-14 00:00:00 (TEL) STLMLC [facility] [id number] [facility] 2023-09-19 00:00:00 2023-09-19 00:00:00 (TEL) [facility]C [facility] [id number] [facility] 2023-09-18 00:00:00 2023-09-18 00:00:00 OFFICE VISIT ESTAB PT LEVEL 4 [facility] [id number] [facility] 2023-09-01 00:00:00 2023-09-01 00:00:00 (TEL) ST[facility]C [facility] [id number] [facility] 2023-08-21 00:00:00 2023-08-21 00:00:00 OFFICE VISIT ESTAB PT LEVEL 4 [facility] [id number] [facility] 2023-07-30 00:00:00 2023-07-30 00:00:00 (TEL) [facility]C [facility] [id number] [facility] 2023-06-30 00:00:00 2023-06-30 00:00:00 OFFICE VISIT ESTAB PT LEVEL 4 [facility] [id number] [facility] 2023-06-02 00:00:00 2023-06-02 00:00:00 (TEL) [facility]C [facility] [id number] [facility] 2023-05-12 00:00:00 2023-05-12 00:00:00 OFFICE VISIT ESTAB PT LEVEL 4 [facility] [id number] [facility] 2023-05-12 00:00:00 2023-05-12 00:00:00 SUB ANNUAL [facility] WELLNESS VISIT [facility]C [facility] [id number] [facility] 2023-02-13 00:00:00 2023-02-13 00:00:00 OFFICE VISIT ESTAB PT LEVEL 4 [facility] [id number] [facility] 2023-02-11 00:00:00 2023-02-11 00:00:00 (TEL) STLMLC [facility] [id number] [facility] 2023-02-11 00:00:00 2023-02-11 00:00:00 (TEL) STL[facility]C [facility] [id number] [facility] 2022-11-08 00:00:00 2022-11-08 00:00:00 OFFICE VISIT ESTAB PT LEVEL 4 [facility] [id number] [facility] 2022-10-02 00:00:00 2022-10-02 00:00:00 (TEL) STLMLC [facility] [id number] [facility] 2022 00:00:00 2022 00:00:00 (TEL) ST[facility]MLC [facility] [id number] [facility] 2022-09-13 00:00:00 2022-09-13 00:00:00 OFFICE VISIT ESTAB PT LEVEL 4 [facility] [id number] [facility] 2022-08-26 00:00:00 2022-08-26 00:00:00 (TEL) STL[facility]C [facility] [id number] [facility] 2022-07-24 00:00:00 2022-07-24 00:00:00 OFFICE VISIT EST PT LEVEL 3 [facility] [id number] [facility] 2022-07-23 00:00:00 2022-07-23 00:00:00 (TEL) ST[facility]C [facility] [id number] [facility] 2022-07-23 00:00:00 2022-07-23 00:00:00 (TEL) STLMLC [facility] [id number] [facility] 2022-07-16 00:00:00 2022-07-16 00:00:00 (TEL) [facility]C [facility] [id number] [facility] 2022-07-01 00:00:00 2022-07-01 00:00:00 OFFICE VISIT EST PT LEVEL 3 [facility] [id number] [facility] 2022-06-21 00:00:00 2022-06-21 00:00:00 (TEL) STLMLC [facility] [id number] [facility] 2022-05-22 00:00:00 2022-05-22 00:00:00 (TEL) STLMLC [facility] [id number] [facility] 2022-04-29 00:00:00 2022-04-29 00:00:00 OFFICE VISIT EST PT LEVEL 3 [facility]C ST[facility] [id number] [facility] 2022-04-29 00:00:00 2022-04-29 00:00:00 SUB ANNUAL [facility] WELLNESS VISIT [facility]C [facility] [id number] [facility] 2022-03-12 00:00:00 2022-03-12 00:00:00 OL DIG E/M SVC 11-20 MIN [facility]C ST[facility]C [id number] [facility] 2022-01-29 00:00:00 2022-01-29 00:00:00 (TEL) STLMLC [facility] [id number] [facility] 2022-01-10 00:00:00 2022-01-10 00:00:00 OFFICE VISIT EST PT LEVEL 3 [facility] [id number] [facility] 2021-10-30 00:00:00 2021-10-30 00:00:00 OFFICE VISIT EST PT LEVEL 3 STLMLC STLMLC [id number] [facility] 2021-09-19 00:00:00 2021-09-19 00:00:00 (TEL) STLMLC STLMLC [id number] [facility] 2021-08-27 00:00:00 2021-08-27 00:00:00 OFFICE VISIT EST PT LEVEL 3 STLMLC STLMLC [id number] [facility] 2021-08-20 16:10:00 2021-08-20 16:10:00 Outpatient MAURY VALDEZ [facility] [id number] [facility] 2021-08-20 16:10:00 2021-08-20 16:10:00 Imm/Inj Visit Nurse, John Winchester Immunizatio Maury Cates [facility] [id number] [facility] 2021-07-19 00:00:00 2021-07-19 00:00:00 (TEL) STLMLC STLMLC [id number] [facility] 2021-06-19 00:00:00 2021-06-19 00:00:00 OFFICE VISIT EST PT LEVEL 3 STLMLC STLMLC [id number] [facility] 2021-05-04 00:00:00 2021-05-04 00:00:00 (TEL) STLMLC STLMLC [id number] [facility] 2021-04-18 00:00:00 2021-04-18 00:00:00 Outpatient STLMLC STLMLC [id number] [facility] 2021-03-19 00:00:00 2021-03-19 00:00:00 Outpatient STLMLC STLMLC [id number] [facility] 2021-03-16 00:00:00 2021-03-16 00:00:00 Outpatient STLMLC STLMLC [id number] [facility] 2021-01-29 08:00:00 2021-01-29 08:00:00 Outpatient MAURY VALDEZ [facility] [id number] [facility] 2021-01-26 00:00:00 2021-01-26 00:00:00 Outpatient STLMLC STLMLC [id number] [facility] 2021-01-26 00:00:00 2021-01-26 00:00:00 Outpatient STLMLC STLMLC [id number] [facility] 2021-01-08 08:20:00 2021-01-08 08:20:00 Outpatient MAURY VALDEZ [facility] [id number] [facility] 2021-01-08 08:20:00 2021-01-08 08:20:00 Outpatient Del MAURY ECHOLS [facility] [id number] [facility] 2020-10-13 00:00:00 2020-10-13 00:00:00 Outpatient STLMLC STLMLC [id number] [facility] 2020-10-12 00:00:00 2020-10-12 00:00:00 Outpatient STLMLC STLMLC [id number] [facility] 2020-10-10 16:00:00 2020-10-10 16:00:00 Outpatient Del [facility] [id number] [facility] 2020-10-09 00:00:00 2020-10-09 00:00:00 Outpatient STLMLC STLMLC [id number] [facility] 2020-10-08 08:40:00 2020-10-08 08:40:00 Outpatient MARIAM DOTSON [facility] [id number] [facility] 2020-09-12 00:00:00 2020-09-12 00:00:00 Outpatient STLMLC STLMLC [id number] [facility] 2020-08-15 00:00:00 2020-08-15 00:00:00 Outpatient STLMLC STLMLC [id number] [facility] 2020-08-15 00:00:00 2020-08-15 00:00:00 Outpatient STLMLC STLMLC [id number] [facility] 2020-08-07 00:00:00 2020-08-07 00:00:00 Outpatient STLMLC STLMLC [id number] [facility] 2020-05-31 00:00:00 2020-05-31 00:00:00 Outpatient STLMLC STLMLC [id number] [facility] 2020-03-31 08:40:00 2020-03-31 08:40:00 Outpatient Felipa sharp [facility] Medicine Daily [facility] [id number] [facility] 2019-02-12 08:09:19 2019-02-12 23:59:00 Hospital Encounter Dieter Kelley [facility] Georgi [id number] 2019-02-12 07:49:57 2019-02-12 08:22:09 Office Visit Dieter Kelley [facility] Specialgiancar[facility] [place] [id number]
[2024-07-03] MEDS ORDERED: TRAMADOL HCL 50 MG TAB ONE (05:19)
--- NOTE | 2024-07-03 06:46 | RAD REPORT ---
EXAM: XR Left Hand Complete, 3 or More Views CLINICAL HISTORY: The patient is 78 years old and is Female; Pain. TECHNIQUE: Three views of the left hand. COMPARISON: No relevant prior studies available. FINDINGS: Bones/joints: Bone demineralization. Degenerative changes in the fifth interphalangeal joint. No acute fracture visualized. No dislocation. Soft tissues: Unremarkable. No radiopaque foreign body. IMPRESSION: No acute findings in the left hand. Electronically signed by: Ina Negron MD 07/03/2024 05:[address] [facility] [place] Due to temporary technical issues with the PACS/[employer] reporting system, reports are being emmy d by the in-house radiologist without review as a courtesy to ensure prompt reporting the interpreting radiologist is fully responsible for the content of the report. Transcribed Date/Time: 07/03/2024 6:46 AM
--- NOTE | 2024-07-03 06:55 | EDPHYS ---
Physician Documentation [facility] Name: Sadia Stephenson Age: 78 yrs Sex: Female : 1945 Arrival Date: 07/03/2024 Time: 04:29 Bed 8 Private MD: ED Physician Noah Arrington HPI: 07/03 04:59 This 78 yrs old Female presents to ER via Ambulatory with complaints of Hand Pain - ms3 Left. 04:59 Sadia Stephenson, a 78-year-old female, presents to the emergency department with pain in ms3 her left hand. She reports that the pain began when she was pulling a bag of cat litter up the stairs and heard something pop in her hand. The pain was initially severe, rated as a ten on a scale of one to ten, but has since decreased to an eight after she laid down and applied an ice pack under her hand. She is currently on Tramadol for chronic lower back pain but has not taken any for this hand pain. She has a history of breaking the same hand a couple of years ago.. Historical: - Allergies: 04:43 No Known Allergies; vc1 - PMHx: 04:43 Anxiety; Arthritis; Hypertension; vc1 - PSHx: 04:43 None; vc1 - Immunization history:: Client reports having NOT received the Covid vaccine. - Infectious Disease History:: Denies. - Social history:: Smoking status: Patient denies any tobacco usage or history of. ROS: 04:59 Constitutional: Negative for fever, and chills. Cardiovascular: Negative for chest ms3 pain, and palpitations. Respiratory: Negative for shortness of breath, cough, wheezing, and pleuritic chest pain, Abdomen/GI: Negative for abdominal pain, nausea, vomiting, diarrhea, and constipation, 04:59 MS/extremity: Positive for pain, of the left hand, Exam: 04:59 Constitutional: This is a well developed, well nourished patient who is awake, alert, ms3 and in no acute distress. Cardiovascular: Regular rate and rhythm with a normal S1 and S2. No gallops, murmurs, or rubs. Normal PMI, no JVD. No pulse deficits. Respiratory: Lungs have equal breath sounds bilaterally, clear to auscultation and percussion. No rales, rhonchi or wheezes noted. No increased work of breathing, no retractions or nasal flaring. Abdomen/GI: Soft, non-tender, with normal bowel sounds. No distension or tympany. No guarding or rebound. No evidence of tenderness throughout. Skin: Warm, dry with normal turgor. Normal color with no rashes, no lesions, and no evidence of cellulitis. 04:59 Musculoskeletal/extremity: Extremities: noted in the left hand: pain, tenderness, There is no evidence of contusion, decreased ROM, ecchymosis, Vital Signs: 04:42 Weight 50.8 kg; Height 5 ft. 3 in. ; Pain 8/10; vc1 04:42 BP 130 / 88; Pulse 73; Resp 18; Temp 97.2(TE); Pulse Ox 100% on R/A; br2 06:18 BP 120 / 88; Pulse 65; Resp 18 S; Pulse Ox 95% on R/A; br2 06:47 Pulse 65; Resp 18; Pulse Ox 98% ; br2 04:42 Body Mass Index 19.84 (50.80 kg, 160.02 cm) vc1 04:42 Pain Scale: Adult vc1 MDM: 04:59 Differential diagnosis: dislocation, closed fracture, contusion, tendonitis. ms3 05:02 Medical Screening Exam initiated ms3 08:11 Data reviewed: vital signs, radiologic studies, plain films, and as a result, I will ms3 discharge patient. I considered the following discharge prescriptions or medication management in the emergency department Medications were administered in the Emergency Department. See MAR. Counseling: I had a detailed discussion with the patient and/or guardian regarding the historical points, exam findings, and any diagnostic results supporting the discharge/admit diagnosis, radiology results, the need for outpatient follow up, to return to the emergency department if symptoms worsen or persist or if there are any questions or concerns that arise at home. Special discussion: I discussed with the patient/guardian in detail that at this point there is no indication for admission to the hospital. It is understood, however, that if the symptoms persist or worsen the patient needs to return immediately for re-evaluation. ED course: Discussed radiograph findings with patient and her son. Patient to follow-up with Dr. Kelley in 2 to 3 days. Patient understands and agrees with plan. All questions were answered. Return precautions discussed include worsening symptoms, or any other concerns.. 07/03 04:38 Order name: Hand Left 3 View XRAY ms3 Administered Medications: 05:21 Drug: traMADol PO 50 mg PO once Route: PO; ay 05:30 Follow up: Response: No adverse reaction ay Disposition Summary: 07/03/24 06:54 Discharge Ordered Notes: Location: Home ms3 Condition: Stable ms3 Diagnosis - Pain in left hand ms3 Followup: ms3 - With: Dieter Kelley MD - When: 2 - 3 days - Reason: Recheck today's complaints Discharge Instructions: - Discharge Summary Sheet ms3 - Musculoskeletal Pain ms3 Forms: - Medication Reconciliation Form ms3 - Antibiotic Education ms3 - Prescription Opioid Use ms3 - Patient Portal Instructions ms3 - Leadership Thank You Letter ms3 Signatures: Dispatcher [employer] Noah Goodman DO DO ms3 Milagros Brown RN RN vc1 Sofia Whipple RN RN ay
--- NOTE | 2024-07-03 06:55 | ER ---
Nurse's Notes [facility] Name: Sadia Stephenson Age: 78 yrs Sex: Female : 1945 Arrival Date: 07/03/2024 Time: 04:29 Bed 8 Private MD: Diagnosis: Pain in left hand Presentation: 07/03 04:42 Chief complaint: Patient states: Broke wrist a few years ago, tonight I was carrying a vc1 bag of cat litter and felt a pop and now it hurts like the dickens. Coronavirus screen: Client denies travel out of the [place] in the last 14 days. At this time, the client does not indicate any symptoms associated with coronavirus-19. Ebola Screen: Patient negative for fever greater than or equal to 101.5 degrees Fahrenheit, and additional compatible Ebola Virus Disease symptoms Patient denies exposure to infectious person. Patient denies travel to an Ebola-affected area in the 21 days before illness onset. No symptoms or risks identified at this time. Initial Sepsis Screen: Does the patient meet any 2 criteria? No. Patient's initial sepsis screen is negative. Does the patient have a suspected source of infection? No. Patient's initial sepsis screen is negative. Risk Assessment: Do you want to hurt yourself or someone else? Patient reports no desire to harm self or others. Onset of symptoms was July 03, 2024. 04:42 Method Of Arrival: Ambulatory vc1 04:42 Acuity: SLIM 3 vc1 Historical: - Allergies: 04:43 No Known Allergies; vc1 - PMHx: 04:43 Anxiety; Arthritis; Hypertension; vc1 - PSHx: 04:43 None; vc1 - Immunization history:: Client reports having NOT received the Covid vaccine. - Infectious Disease History:: Denies. - Social history:: Smoking status: Patient denies any tobacco usage or history of. Screenin:51 [facility] ED Fall Risk Assessment (Adult) History of falling in the last 3 months, br2 including since admission No falls in past 3 months (0 pts) Confusion or Disorientation No (0 pts) Intoxicated or Sedated No (0 pts) Impaired Gait No (0 pts) Mobility Assist Device Used No (0 pt) Altered Elimination No (0 pt) Score/Fall Risk Level 0 - 2 = Low Risk Oriented to surroundings. Abuse screen: Denies threats or abuse. Denies injuries from another. Nutritional screening: No deficits noted. Tuberculosis screening: No symptoms or risk factors identified. Assessment: 04:51 Reassessment: Patient and/or family updated on plan of care and expected duration. Pain br2 level reassessed. Patient is alert, oriented x 3, equal unlabored respirations, skin warm/dry/pink. General: Appears uncomfortable, Behavior is calm, cooperative. Pain: Complains of pain in palmar aspect of proximal phalanx of left thumb, heel of left hand, palm of left hand and Left first web space Pain currently is 7 out of 10 on a pain scale. Quality of pain is described as aching, Pain began 3 hours ago. Neuro: Bae Agitation-Sedation Scale (RASS): 0 - Alert and Calm Level of Consciousness is awake, alert, obeys commands, Oriented to person, place, time. Cardiovascular: Capillary refill < 3 seconds. Respiratory: Airway is patent Respiratory effort is even, unlabored, Respiratory pattern is regular, symmetrical. GI: No signs and/or symptoms were reported involving the gastrointestinal system. : No signs and/or symptoms were reported regarding the genitourinary system. EENT: No signs and/or symptoms were reported regarding the EENT system. Derm: No signs and/or symptoms reported regarding the dermatologic system. Musculoskeletal: Circulation, motion, and sensation intact. Capillary refill < 3 seconds, Range of motion: intact in all extremities. Vital Signs: 04:42 Weight 50.8 kg; Height 5 ft. 3 in. ; Pain 8/10; vc1 04:42 BP 130 / 88; Pulse 73; Resp 18; Temp 97.2(TE); Pulse Ox 100% on R/A; br2 06:18 BP 120 / 88; Pulse 65; Resp 18 S; Pulse Ox 95% on R/A; br2 06:47 Pulse 65; Resp 18; Pulse Ox 98% ; br2 04:42 Body Mass Index 19.84 (50.80 kg, 160.02 cm) vc1 04:42 Pain Scale: Adult vc1 ED Course: 04:32 Patient arrived in ED. ra3 04:38 Noah Arrington DO is Attending Physician. ms3 04:42 Qian Blevins RN is Primary Nurse. br2 04:43 Triage completed. vc1 04:43 Arm band placed on right wrist. vc1 04:51 Patient has correct armband on for positive identification. Bed in low position. Call br2 light in reach. Side rails up X 1. Provided Education on: plan of care. 04:53 Hand Left 3 View XRAY In Process Unspecified. EDMS 06:54 Dieter Horner MD is Referral Physician. ms3 07:01 No provider procedures requiring assistance completed. br2 07:01 Patient did not have IV access during this emergency room visit. br2 Administered Medications: 05:21 Drug: traMADol PO 50 mg PO once Route: PO; ay 05:30 Follow up: Response: No adverse reaction ay Medication: 07:02 VIS not applicable for this client. br2 Outcome: 06:54 Discharge ordered by MD. ms3 07:01 Discharged to home ambulatory, br2 07:01 Condition: good 07:01 Discharge instructions given to patient, Instructed on discharge instructions, follow up and referral plans. Demonstrated understanding of instructions, follow-up care, 07:02 Patient left the ED. br2 Signatures: Dispatcher [employer] EDMS Noah Arrington DO DO ms3 Milagros Brown RN RN vc1 Carmelina Booth ra3 Qian Blevins RN RN br2 Sofia Whipple RN EMANUEL ay
[2024-07-03 07:07] VITALS: TEMP 97.2
[2024-07-03 07:08] VITALS: BP 120/88
[2024-07-03 07:09] VITALS: O2SAT 98
== END 2024-07-03 07:02 | disposition home or self-care (01) ==
LOC: ER 04:29
DX: M79.642 Pain in left hand (principal)
CPT/HCPCS: 99283

== ENCOUNTER 2025-05-10 08:17 | Emergency (ER) | payer OTHER ==
--- NOTE | 2025-05-10 09:44 | RAD REPORT ---
Exam:Shoulder Right 2+ Views History: Right shoulder pain Findings: No fracture or dislocation seen Osteoporosis
--- NOTE | 2025-05-10 09:46 | RAD REPORT ---
EXAM:Ribs Right CLINICAL HISTORY: Right rib pain FINDINGS: No fracture seen Two-view series obtained
--- NOTE | 2025-05-10 09:50 | ER ---
Nurse's Notes [facility] Name: Sadia Stephenson Age: 79 yrs Sex: Female : 1945 Arrival Date: 05/10/2025 Time: 08:17 Bed 3 Private MD: Diagnosis: Sprain of shoulder joint-right Presentation: 05/10 08:44 Chief complaint: Patient states: she fell into the wall and onto the floor yesterday. ap3 patient denies any LOC. patient reports pain to her right arm, shoulder and neck. patient currently rates her pain as a 7/10 on the pain scale. Coronavirus screen: At this time, the client does not indicate any symptoms associated with coronavirus-19. Ebola Screen: No symptoms or risks identified at this time. Initial Sepsis Screen: Does the patient meet any 2 criteria? No. Patient's initial sepsis screen is negative. Does the patient have a suspected source of infection? No. Patient's initial sepsis screen is negative. Risk Assessment: Do you want to hurt yourself or someone else? Patient reports no desire to harm self or others. Onset of symptoms was May 09, 2025. 08:44 Method Of Arrival: Ambulatory ap3 08:44 Acuity: SLIM 4 ap3 Triage Assessment: 08:46 General: Appears in no apparent distress. Behavior is calm, cooperative, appropriate ap3 for age. Pain: Complains of pain in right sternocleidomastoid and right shoulder and anterior aspect of right upper chest Pain currently is 7 out of 10 on a pain scale. Neuro: Level of Consciousness is awake, alert, obeys commands, Oriented to person, place, time, situation, Appropriate for age. Cardiovascular: Patient's skin is warm and dry. Respiratory: Airway is patent Respiratory effort is even, unlabored, Respiratory pattern is regular, symmetrical. Historical: - Allergies: 08:25 No Known Allergies; ll1 - PMHx: 08:25 Anxiety; Arthritis; Hypertension; ll1 - Immunization history:: Adult Immunizations up to date. - Infectious Disease History:: Denies. - Social history:: Smoking status: Patient denies any tobacco usage or history of. Screenin:46 [facility] ED Fall Risk Assessment (Adult) History of falling in the last 3 months, ap3 including since admission Yes- single mechanical fall (1 pt) Confusion or Disorientation No (0 pts) Intoxicated or Sedated No (0 pts) Impaired Gait No (0 pts) Mobility Assist Device Used No (0 pt) Altered Elimination No (0 pt) Score/Fall Risk Level 0 - 2 = Low Risk Oriented to surroundings, Maintained a safe environment, Educated pt \T\ family on fall prevention, incl call for assistance when getting out of bed, Assessed \T\ reinforced patient's understanding of fall precautions, Hourly rounding (assess needs \T\ fall precautionary measures) done, Used ambulatory aids as needed (educated on \T\ assisted with). Abuse screen: Denies threats or abuse. Nutritional screening: No deficits noted. Tuberculosis screening: No symptoms or risk factors identified. Vital Signs: 08:44 BP 166 / 84; Pulse 76; Resp 18; Temp 98.1; Pulse Ox 100% ; Weight 49.9 kg; Height 5 ft. ap3 3 in. ; Pain 7/10; 08:44 Body Mass Index 19.49 (49.90 kg, 160.02 cm) ap3 08:44 Pain Scale: Adult ap3 ED Course: 08:20 Patient arrived in ED. al6 08:20 Annabel Brandon PA-C is PHCP. sb4 08:20 Noah Arrington DO is Attending Physician. sb4 08:24 Arm band placed on Patient placed in an exam room, on a stretcher. ll1 08:44 Demetra Estes, RN is Primary Nurse. ap3 08:45 Triage completed. ap3 08:47 No provider procedures requiring assistance completed. ap3 09:38 Shoulder Right (2 View) XRAY In Process Unspecified. EDMS 09:39 Ribs Right XRAY In Process Unspecified. EDMS 09:53 Patient has correct armband on for positive identification. Placed in gown. Bed in low ap3 position. Call light in reach. Side rails up X 1. Provided Education on: fall risk education. Pulse ox on. NIBP on. 09:53 Patient did not have IV access during this emergency room visit. ap3 Administered Medications: No medications were administered Medication: 09:54 VIS not applicable for this client. ap3 Outcome: 09:49 Discharge ordered by . sb4 09:53 Condition: good ap3 09:53 Discharge instructions given to patient, Instructed on discharge instructions, follow up and referral plans. Demonstrated understanding of instructions, follow-up care, 09:54 Discharged to home ambulatory, ap3 09:54 Patient left the ED. ap3 Signatures: Dispatcher [employer] Demetra Castro RN RN ap3 Noris Tate RN RN ll1 Annabel Brandon, PACarlotta PACarlotta sb4 [place]
--- NOTE | 2025-05-10 09:50 | EDPHYS ---
Physician Documentation [facility] Name: Sadia Stephenson Age: 79 yrs Sex: Female : 1945 Arrival Date: 05/10/2025 Time: 08:17 Bed 3 Private MD: ED Physician Noah Arrington HPI: 05/10 08:44 This 79 yrs old Female presents to ER via Unassigned with complaints of Fall Injury. sb4 08:44 Patient states that she slept well and how she is and fell into the wall. She is sb4 complaining of pain in her right anterior chest wall and right shoulder region. Reports pain with range of motion of her right arm. Denies any head trauma or loss of consciousness. Just wants to make sure that nothing is broken. Historical: - Allergies: 08:25 No Known Allergies; ll1 - PMHx: 08:25 Anxiety; Arthritis; Hypertension; ll1 - Immunization history:: Adult Immunizations up to date. - Infectious Disease History:: Denies. - Social history:: Smoking status: Patient denies any tobacco usage or history of. ROS: 08:44 Constitutional: Negative for fever, chills, and weight loss, sb4 08:44 MS/extremity: Positive for injury or acute deformity, pain, per HPI, 08:44 All other systems are negative, Exam: 08:44 Head/Face: Normocephalic, atraumatic. Eyes: Extra-ocular motions intact. Periorbital sb4 areas with no swelling, redness, or edema. ENT: Mucous membranes moist. Respiratory: No increased work of breathing, no retractions or nasal flaring. Skin: Warm, dry with normal turgor. Normal color with no rashes, no lesions, and no evidence of cellulitis. 08:44 Chest/axilla: Inspection: ecchymosis, that is mild, of the anterior aspect of right upper chest 08:44 Musculoskeletal/extremity: Circulation is intact in all extremities. Pulses: are normal with no appreciated deficits, Perfusion: the extremity is normally perfused throughout, Sensation intact. Joints: the right shoulder displays painful range of motion, Vital Signs: 08:44 BP 166 / 84; Pulse 76; Resp 18; Temp 98.1; Pulse Ox 100% ; Weight 49.9 kg; Height 5 ft. ap3 3 in. ; Pain 7/10; 08:44 Body Mass Index 19.49 (49.90 kg, 160.02 cm) ap3 08:44 Pain Scale: Adult ap3 MDM: 08:21 Medical Screening Exam initiated sb4 09:50 Differential diagnosis: contusion, fracture, sprain, strain. Data reviewed: vital sb4 signs, nurses notes, radiologic studies, plain films, and as a result, I will discharge patient. Care significantly affected by the following chronic conditions: Hypertension. Counseling: I had a detailed discussion with the patient and/or guardian regarding the historical points, exam findings, and any diagnostic results supporting the discharge/admit diagnosis, the presence of at least one elevated blood pressure reading (>120/80) during this emergency department visit, radiology results, the need for outpatient follow up, for definitive care, to return to the emergency department if symptoms worsen or persist or if there are any questions or concerns that arise at home. 05/10 08:25 Order name: Shoulder Right (2 View) XRAY; Complete Time: 09:47 sb4 05/10 08:25 Order name: Ribs Right XRAY; Complete Time: 09:47 sb4 Administered Medications: No medications were administered Disposition: 09:57 I was immediately available on-site in the Emergency Department for consultation in the ms3 care of the patient. Disposition Summary: 05/10/25 09:49 Discharge Ordered Notes: Location: Home sb4 Problem: new sb4 Symptoms: have improved sb4 Condition: Stable sb4 Diagnosis - Sprain of shoulder joint - right sb4 Followup: sb4 - With: Private Physician - When: As needed - Reason: Recheck today's complaints, Re-evaluation by your physician Discharge Instructions: - Discharge Summary Sheet sb4 - Shoulder Sprain sb4 Forms: - Patient Portal Instructions sb4 - Leadership Thank You Letter sb4 Signatures: Dispatcher [employer] Demetra Castro RN RN ap3 Noris Tate RN RN ll1 Noah Arrington DO DO ms3 Annabel Brandon PA-C PA-C sb4
[2025-05-10 16:50] VITALS: BP 166/84; TEMP 98.1; O2SAT 100
== END 2025-05-10 09:54 | disposition home or self-care (01) ==
LOC: ER 08:17
DX: S43.401A Unspecified sprain of right shoulder joint, initial encounter (principal); R07.89 Other chest pain; W18.30XA Fall on same level, unspecified, initial encounter; I10 Essential (primary) hypertension
CPT/HCPCS: 99283